=== PATIENT | male | born 1985 ===

== ENCOUNTER 2020-10-05 05:26 | Emergency (ER) | payer SELFPAY ==
[2020-10-05] MEDS ORDERED: ASPIRIN 325 MG TAB PO ONE (05:31)
[2020-10-05 05:47] LABS: Basophils % (Auto) 0.4 % (0.0-1.8); Eosinophils # (Auto) 0.3 K/mm3 (0.0-0.4); Eosinophils % (Auto) 3.3 % (0.0-4.3); Hematocrit 43.7 % (35.5-45.6); Hemoglobin 14.1 gm/dl (11.8-15.2); Lymphocytes # (Auto) 2.6 K/mm3 (1.2-5.4); Lymphocytes % (Auto) 31.3 % (13.4-35.0); Mean Corpuscular HGB Conc 32 % (32-34); Mean Corpuscular Volume 86 fl (84-94); Monocytes # (Auto) 0.9 K/mm3 (0.0-0.8); Monocytes % (Auto) 10.1 % (0.0-7.3); Platelet Count 265 K/mm3 (140-440); Red Blood Count 5.09 M/mm3 (3.65-5.03); Red Cell Distribution Width 14.3 % (13.2-15.2)
--- NOTE | 2020-10-05 05:58 | XRay Report ---
CHEST 1 VIEW INDICATION: Chest Pain. COMPARISON: None. FINDINGS: Support devices: None. Heart: Normal. Lungs/Pleura: No acute pulmonary or pleural findings. IMPRESSION: 1. No acute findings. Signer Name: Sadiq Alcazar MD Signed: 10/05/2020 5:54 AM Workstation Name: [id number]
[2020-10-05] MEDS ORDERED: IPRATROPIUM/ALBUTEROL SULFATE 3 ML AMPUL.NEB IH ONE ×2 (06:01→06:03)
[2020-10-05 06:12] LABS: Blood Urea Nitrogen 10 mg/dL (9-20); Calcium 9.1 mg/dL (8.4-10.2); Hemolysis Index 13
[2020-10-05] MEDS ORDERED: IPRATROPIUM 0.02% NEBU 2.5 ML IH ONE ×2 (06:12→06:13)
[2020-10-05] MEDS ORDERED: predniSONE 20 MG TAB PO ONE (06:13)
[2020-10-05] MEDS ORDERED: ALBUTEROL 2.5 MG/3 ML NEBU IH ONE ×2 (06:13)
--- NOTE | 2020-10-05 06:16 | Emergency Department Report ---
ED Shortness of Breath HPI - General Chief Complaint: Dyspnea/Respdistress Stated Complaint: DIFFICULTY IN BREATHING X'S 1 DAY Time Seen by Provider: 10/05/20 06:10 Source: patient Mode of arrival: Ambulatory Limitations: No Limitations - History of Present Illness Initial Comments: CC: "I am pretty sure it is from a cold." HPI: This is a 35 yo male with hx of tobacco abuse, HTN, severe obesity and childhood asthma who presents with shortness of breath, wheezing and cough for one day. He has nasal congestion. He felt tight in his chest. Gradual onset of symptoms one day ago. Does not use an inhaler on a regular basis. No fever. Multiple sick children at home. Gradual onset of diffuse chest tightness. MD Complaint: shortness of breath, cough -: Gradual, days(s) (1) Severity: moderate Consistency: constant Improves With: nothing Worsens With: nothing Known History Of: asthma Context: recent URI Associated Symptoms: cough - Related Data Previous Rx's Medication Instructions Recorded Last Taken Type Albuterol Mdi (or & Nicu Only) 2 puff IH QID PRN #8.5 gram 10/05/20 Unknown Rx [ProAir HFA Inhaler] Doxycycline Hyclate [Doxycycline 100 mg PO Q12HR #14 tab 10/05/20 Unknown Rx Hyclate TAB] predniSONE [Deltasone] 3 tab PO QDAY 3 Days #9 tab 10/05/20 Unknown Rx Allergies Allergy/AdvReac Type Severity Reaction Status Date / Time No Known Allergies Allergy Verified 10/05/20 06:10 ED Review of Systems ROS: Stated complaint: DIFFICULTY IN BREATHING X'S 1 DAY Other details as noted in HPI Comment: All other systems reviewed and negative Constitutional: denies: fever, malaise ENT: congestion Respiratory: cough, shortness of breath, wheezing Cardiovascular: chest pain Gastrointestinal: denies: abdominal pain, nausea, vomiting Musculoskeletal: denies: back pain ED Past Medical Hx - Past Medical History Previous Medical History?: Yes Hx Hypertension: Yes Hx Asthma: Yes - Surgical History Past Surgical History?: No - Social History Smoking Status: Never Smoker Substance Use Type: None - Medications Home Medications: Home Medications Medication Instructions Recorded Confirmed Last Taken Type Albuterol Mdi (or & Nicu Only) 2 puff IH QID PRN #8.5 gram 10/05/20 Unknown Rx [ProAir HFA Inhaler] Doxycycline Hyclate [Doxycycline 100 mg PO Q12HR #14 tab 10/05/20 Unknown Rx Hyclate TAB] predniSONE [Deltasone] 3 tab PO QDAY 3 Days #9 tab 10/05/20 Unknown Rx ED Physical Exam - General Limitations: No Limitations General appearance: alert, in no apparent distress - Head Head exam: Present: atraumatic, normocephalic - Eye Eye exam: Present: normal appearance - ENT ENT exam: Present: mucous membranes moist - Neck Neck exam: Present: normal inspection, full ROM - Respiratory Respiratory exam: Present: wheezes, decreased breath sounds. Absent: respiratory distress, rales, rhonchi, accessory muscle use, prolonged expiratory - Cardiovascular Cardiovascular Exam: Present: normal rhythm, tachycardia, normal heart sounds. Absent: systolic murmur, diastolic murmur, rubs, gallop - GI/Abdominal GI/Abdominal exam: Present: soft, normal bowel sounds. Absent: distended, tenderness, guarding - Rectal Rectal exam: Present: deferred - Extremities Exam Extremities exam: Present: normal inspection - Neurological Exam Neurological exam: Present: alert, oriented X3 - Psychiatric Psychiatric exam: Present: normal affect, normal mood - Skin Skin exam: Present: warm, dry, intact, normal color. Absent: rash ED Course Vital Signs 10/05/20 10/05/20 10/05/20 05:32 05:52 06:00 Temperature 98.0 F Pulse Rate 121 H 125 H 117 H Pulse Rate [ Bilateral Throughout] Respiratory 22 11 L 15 Rate Respiratory Rate [Bilateral Throughout] Blood Pressure 159/107 168/90 O2 Sat by Pulse 95 97 94 Oximetry 10/05/20 10/05/20 10/05/20 06:03 06:06 06:15 Temperature Pulse Rate 120 H 117 H Pulse Rate [ 122 H Bilateral Throughout] Respiratory 20 18 Rate Respiratory 16 Rate [Bilateral Throughout] Blood Pressure 168/73 O2 Sat by Pulse 98 92 Oximetry 10/05/20 10/05/20 10/05/20 06:30 06:45 07:00 Temperature Pulse Rate 105 H 114 H 106 H Pulse Rate [ Bilateral Throughout] Respiratory 18 18 13 Rate Respiratory Rate [Bilateral Throughout] Blood Pressure 173/83 152/88 152/88 O2 Sat by Pulse 97 97 95 Oximetry ED Medical Decision Making - Lab Data Result diagrams: 10/05/20 05:34 10/05/20 05:34 - Radiology Data Radiology results: report reviewed CHEST 1 VIEW INDICATION: Chest Pain. COMPARISON: None. FINDINGS: Support devices: None. Heart: Normal. Lungs/Pleura: No acute pulmonary or pleural findings. IMPRESSION: 1. No acute findings. - Medical Decision Making Acute bronchitis: Due to severe symptoms and tobacco abuse antibiotics are indicated. Patient received prescription for doxycycline prednisone and albuterol MDI. Patient felt much better after receiving continuous nebulizer therapy as well as steroids. Critical care attestation.: If time is entered above; I have spent that time in minutes in the direct care of this critically ill patient, excluding procedure time. ED Disposition Clinical Impression: Acute bronchitis Disposition: - TO HOME OR SELFCARE Is pt being admited?: No Does the pt Need Aspirin: No Condition: Stable Instructions: Acute Bronchitis (ED), Acute Bronchitis, Adult, [id number], Steps to Quit Smoking, [id number] Prescriptions: predniSONE [Deltasone] 3 tab PO QDAY 3 Days #9 tab Doxycycline Hyclate [Doxycycline Hyclate TAB] 100 mg PO Q12HR #14 tab Albuterol Mdi (or & Nicu Only) [ProAir HFA Inhaler] 2 puff IH QID PRN #8.5 gram PRN Reason: Shortness Of Breath Referrals: LACIE WARD MD [Staff Physician] - 3-5 Days
[2020-10-05 06:17] LABS: BUN/Creatinine Ratio 17
[2020-10-05 11:09] VITALS: BP 146/98
== END 2020-10-05 11:09 | disposition home or self-care (01) ==
LOC: EDBD → ED 05:26
DX: J20.9 Acute bronchitis, unspecified (principal); I10 Essential (primary) hypertension; Z79.899 Other long term (current) drug therapy
CPT/HCPCS: 36415; 71045; 80048; 84484; 85025; 94640; 99284; J7512; 94644